=== PATIENT | male | born 1960 | race Caucasian/White ===

== ENCOUNTER → 2019-04-06 | Outpatient (CLI) | payer OTHER ==
--- NOTE | 2019-04-06 15:45 | XR ---
Orbits HISTORY: MRI clearance 3 views of the orbits Bone mineralization is maintained. No radiopaque foreign body within the orbits. Paranasal sinuses ar e well aerated. IMPRESSION: No radiopaque foreign body within the orbits.
== END | disposition home or self-care (01) ==
LOC: RADXRMAIN 14:02
PROVIDERS: ATTEND Orthopaedic Surgery
DX: Z01.818 Encounter for other preprocedural examination (principal); Z87.821 Personal history of retained foreign body fully removed
CPT/HCPCS: 70030